=== PATIENT | male | born 1965 | race Caucasian/White ===

== ENCOUNTER → 2016-12-07 | Outpatient (CLI) | payer OTHER, MEDICARE ==
--- NOTE | 2016-12-07 12:18 | XCELERA REPORT ---
[address] [address] Lower Extremity Arterial Evaluation Name: ROB CALABRESE Age: 50 yrs Gender: Male : 1965 Patient Status: Outpatient Patient Location: Study Date: 12/07/2016 10:56 AM Procedure: A color flow and duplex scan of the lower extremity arteries was performed on the left with velocity and waveform anaylsis. Reason For Study: PVD, CLAUDICATION Ordering Physician: ARSEN CHANG Performed By: Eloise Rodriguez Measurements and Calculations Right Left POWER DISTRIBUTION ENGINEER PSV 149.3 cm/sec Prox PFA PSV 81.0 cm/sec Prox SFA PSV 106.9 cm/sec Mid SFA PSV -96.8 cm/sec Dist SFA PSV -66.4 cm/sec Prox Pop A PSV 79.1 cm/sec Dist TEZ PSV 86.6 cm/sec Dist PIGS FEET CLEANER PSV 83.0 cm/sec Rigo Pedis PSV 26.7 46.8 cm/sec Right Side Arterial Evaluation Very limited spot check of Dorsalis Pedis shows normal waveform. Left Side Arterial Evaluation Normal velocity, waveform and triphasic flow are present, from the Common Femoral artery down to the infrageniculate vessels. The ankle-brachial index was not done, the patient could not tolerate the pressure. 0% stenosis is noted. Interpretation Summary No hemodynamically significant lesions in the left lower extremity only, on duplex imaging, at rest. : ARSEN CHANG [place]
== END ==
LOC: SP 10:53
PROVIDERS: ATTEND Internal Medicine
DX: I73.9 Peripheral vascular disease, unspecified (principal)
CPT/HCPCS: 93926

== ENCOUNTER 2017-01-01 16:17 | Emergency (ER) | payer OTHER, MEDICARE ==
--- NOTE | 2017-01-01 16:42 | ER Document Report ---
ED Medical Screen (RME) - General Stated Complaint: BACK PAIN, HIP PAIN Mode of Arrival: Wheelchair Information source: Patient Notes: Patient reports recent cortisone injection shot on Monday of this week. Patient reports increased pain to low back that radiates to right hip area and groin. No fever. Patient does report pain to right lower pelvic area hx: Diabetes, hypertension I have greeted and performed a rapid initial assessment of this patient. A comprehensive ED assessment and evaluation of the patient, analysis of test results and completion of the medical decision making process will be conducted by additional ED providers. TRAVEL OUTSIDE OF THE [place] IN LAST 30 DAYS: No - Related Data Allergies/Adverse Reactions: No Known Allergies Allergy (Verified 01/01/17 16:39) Past Medical History - Past Medical History Cardiac Medical History: Reports: Hx Hypertension Endocrine Medical History: Reports: Hx Diabetes Mellitus Type 2 GI Medical History: Reports: Hx Gastroesophageal Reflux Disease Past Surgical History: Reports: Hx Appendectomy, Hx Orthopedic Surgery - cervical, lumbar sx Physical Exam - Vital signs Vitals: Temp Pulse Resp BP Pulse Ox 98.5 F 73 16 138/60 H 96 01/01/17 16:22 01/01/17 16:22 01/01/17 16:22 01/01/17 16:22 01/01/17 16:22 - Abdominal Tenderness: Tender - Right lower pelvic Course - Vital Signs Vital signs: Temp Pulse Resp BP Pulse Ox 98.5 F 73 16 138/60 H 96 01/01/17 16:22 01/01/17 16:22 01/01/17 16:22 01/01/17 16:22 01/01/17 16:22
[2017-01-01 18:09] LABS: APPEARANCE,URINE CLEAR; BILIRUBIN,URINE NEGATIVE (NEGATIVE); GLUCOSE, URINE NEGATIVE (NEGATIVE); KETONES,URINE NEGATIVE (NEGATIVE); LEUKOCYTE ESTERASE,URINE NEGATIVE (NEGATIVE); NITRITE,URINE NEGATIVE (NEGATIVE); PROTEIN,URINE NEGATIVE (NEGATIVE); URINE SPECIFIC GRAVITY 1.011; UROBILINOGEN,URINE NEGATIVE mg/dL (<2.0)
[2017-01-01 18:19] LABS: ABSOLUTE EOSINOPHILS # (AUTO) 0.1 10^3/uL (0.0-0.6); ABSOLUTE LYMPHOCYTES (AUTO) 2.8 10^3/uL (0.5-4.7); ABSOLUTE MONOCYTES (AUTO) 0.9 10^3/uL (0.1-1.4); ABSOLUTE NEUT (AUTO) 9.4 10^3/uL (1.7-8.2); BASOPHILS % (AUTO) 0.4 % (0-2); EOSINOPHILS % (AUTO) 1.1 % (0-6); HEMATOCRIT 46.6 % (37.9-51.0); HEMOGLOBIN 15.2 g/dL (13.5-17.0); LYMPHOCYTES % (AUTO) 20.9 % (13-45); MEAN CORPUSCULAR HEMOGLOBIN 27.2 pg (27.0-33.4); MEAN CORPUSCULAR HGB CONC 32.7 g/dL (32.0-36.0); MEAN CORPUSCULAR VOLUME 83 fl (80-97); MONOCYTES % (AUTO) 6.6 % (3-13); RED BLOOD COUNT 5.59 10^6/uL (4.35-5.55); RED CELL DISTRIBUTION WIDTH 13.7 % (11.5-14.0); WHITE BLOOD COUNT 13.2 10^3/uL (4.0-10.5)
[2017-01-01 18:20] LABS: ALANINE AMINOTRANSFERASE 53 U/L (21-72); ALBUMIN 4.4 g/dL (3.5-5.0); ALKALINE PHOSPHATASE 85 U/L (38-126); ANION GAP 13 (5-19); ASPARTATE AMINO TRANSFERASE 39 U/L (17-59); BILIRUBIN,TOTAL 0.7 mg/dL (0.2-1.3); BLOOD UREA NITROGEN 16 mg/dL (7-20); CALCIUM 10.3 mg/dL (8.4-10.2); CARBON DIOXIDE 29 mmol/L (22-30); CHLORIDE 99 mmol/L (98-107); CREATININE RESULT 0.94 mg/dL (0.52-1.25); GLUCOSE 129 mg/dL (75-110); POTASSIUM 4.4 mmol/L (3.6-5.0); SODIUM 140.5 mmol/L (137-145)
--- NOTE | 2017-01-01 22:33 | ER Document Report ---
HPI - HPI Pain Level: 4 Context: Patient is a 51-year-old male presents emergency Department complaining of right lower quadrant pain; onset this morning. Patient and his state that he has been burping a lot today but otherwise denies any difficulty tolerating a diet. Patient states the last bowel movement was this morning and was soft. Patient states that he is on narcotic pain medications for pain management for chronic back pain. States he is not on a stool softener. Patient admits that he has had his appendix surgically removed and no history of kidney stones. Denies any pain radiating into his groin, pyuria, hematuria, diarrhea, nausea or vomiting. He states at this time that he feels like he really just has deferred. As medical history significant for hypertension, hyperlipidemia, diabetes, chronic back pain - CARDIOVASCULAR Cardiovascular: DENIES: Chest pain - DERM Skin Color: Normal Past Medical History - General Information source: Patient - Social History Smoking Status: Unknown if Ever Smoked Chew tobacco use (# tins/day): No Frequency of alcohol use: None Drug Abuse: None Family History: Reviewed & Not Pertinent Patient has suicidal ideation: No Patient has homicidal ideation: No - Past Medical History Cardiac Medical History: Reports: Hx Hypertension Endocrine Medical History: Reports: Hx Diabetes Mellitus Type 2 Renal/ Medical History: Denies: Hx Peritoneal Dialysis GI Medical History: Reports: Hx Gastroesophageal Reflux Disease Past Surgical History: Reports: Hx Appendectomy, Hx Orthopedic Surgery - cervical, lumbar sx Vertical Provider Document - CONSTITUTIONAL Agree With Documented VS: Yes Exam Limitations: No Limitations General Appearance: WD/WN, No Apparent Distress, Obese - INFECTION CONTROL TRAVEL OUTSIDE OF THE [place] IN LAST 30 DAYS: No - HEENT HEENT: Atraumatic, Normal ENT Exam, Normocephalic - RESPIRATORY Respiratory: Breath Sounds Normal, No Respiratory Distress, Chest Non-Tender. negative: Rales, Rhonchi, Wheezing O2 Sat by Pulse Oximetry: 96 - CARDIOVASCULAR Cardiovascular: Regular Rate, Regular Rhythm, No Murmur Pulses: Normal: Radial - GI/ABDOMEN Gastrointestinal: Abdomen Soft, Abdomen Non-Tender, No Organomegaly, Normal Bowel Sounds. negative: Abdominal Guarding, Abdominal Rebound - MUSCULOSKELETAL/EXTREMETIES Musculoskeletal/Extremeties: MAEW, FROM, Non-Tender, No Edema - NEURO Level of Consciousness: Awake, Alert, Appropriate Motor/Sensory: No Motor Deficit, No Sensory Deficit Course - Re-evaluation Re-evalutation: 01/01/17 22:51 Patient is a 51-year-old male who presents emergency Department complaining of right lower quadrant abdominal pain. He denies any history of diverticulitis, irritable bowel syndrome, Crohn's disease or also to colitis. Patient was sent for CT the abdomen and pelvis after discussion with Dr. Rodríguez given that he had an elevated white count and right lower quadrant pain. CT scan of the abdomen did not reveal any acute processes. At this time and upon reassessment patient is pain-free and would like to go home. Otherwise his exam and workup is Indicative of any acute abdominal process. Stable for discharge and can follow- up with his PCP as scheduled - Vital Signs Vital signs: Temp Pulse Resp BP Pulse Ox 98.5 F 73 16 138/60 H 96 01/01/17 16:22 01/01/17 16:22 01/01/17 16:22 01/01/17 16:22 01/01/17 16:22 - Laboratory Result Diagrams: 01/01/17 17:45 01/01/17 17:45 Laboratory results interpreted by me: 01/01/17 01/01/17 17:45 17:45 WBC 13.2 H RBC 5.59 H Absolute Neutrophils 9.4 H Glucose 129 H Calcium 10.3 H - Diagnostic Test Radiology reviewed: Image reviewed, Reports reviewed Discharge - Discharge Clinical Impression: Abdominal pain Qualifiers: Abdominal location: right lower quadrant Qualified Code(s): R10.31 - Right lower quadrant pain Condition: Good Disposition: HOME, SELF-CARE Additional Instructions: ABDOMINAL PAIN: There are many causes of abdominal pain. Pain can mean a serious problem requiring surgery (such as appendicitis). It can also be an innocent problem that goes away on its own (such as a viral infection). Often, time must pass to determine the cause of pain. The physician does not feel that hospitalization is necessary, at present. Things may change within the next 24 hours. Call the doctor or come back for re- examination if any problems occur, such as: (1) Pain that becomes more severe, steady, or becomes concentrated in one specific area. Also, pain that is more severe with movement or coughing. (2) Vomiting that persists or becomes more frequent. (3) Blood in the vomitus, urine, or bowel movements. Blood in the stool may have a tarry or black appearance. (4) Shaking chills or fever greater than 100 degrees F. (5) The abdomen becomes more distended or swollen. (6) Bowel movements cease. (7) Failure to improve as expected. NORMAL EXAM AND WORKUP: At this time, your examination and workup show no significant abnormality. No significant abnormal physical findings are noted. All laboratory, EKG, and imaging (x-ray, CT scans, ultrasound) studies that were ordered show no significant abnormality. Although your examination and all studies that were ordered showed no significant abnormal finding, there are no examinations and no studies that are 100% accurate. There is always the possibility that some abnormality could exist and not be detected with physical examination or within the limits and capabilities of laboratory and other studies. You should return or follow up as you were instructed on your visit today for further evaluation if your symptoms do not resolve. ANTINAUSEA MEDICATION: You have been given a medication to suppress nausea and vomiting. This type of medication can be given as a shot, pill, or suppository. It will usually last for many hours. Pills and shots usually last six to eight hours, suppositories last about 12 hours. For the typical illness, only one or two doses of the medication may be necessary. Mild lightheadedness may occur. This type of medicine can cause drowsiness. Do not drive or operate dangerous machinery while under its influence. Do not mix with alcohol. See your doctor at once if you have muscle spasms or tightness, or uncontrollable motions (particularly of the neck, mouth, or jaw). Persistent vomiting or severe lightheadedness should also be evaluated by the physician. FOLLOW-UP CARE: If you have been referred to a physician for follow-up care, call the physician s office for an appointment as you were instructed or within the next two days. If you experience worsening or a significant change in your symptoms, notify the physician immediately or return to the Emergency Department at any time for re-evaluation. Prescriptions: Sucralfate [Carafate 1 gm Tablet] 1 gm PO ACHS 21 Days Forms: Elevated Blood Pressure Referrals: GABE MARS MD [Primary Care Provider] - Follow up as needed
[2017-01-01 22:39] VITALS: BP 147/84
== END 2017-01-01 22:42 | disposition home or self-care (01) ==
LOC: ER 16:17
DX: R10.31 Right lower quadrant pain (principal)
CPT/HCPCS: 36415; 74176; 80053; 81001; 85025; 99284

== ENCOUNTER → 2019-04-11 | Outpatient (CLI) | payer OTHER, MEDICARE ==
--- NOTE | 2019-04-11 11:54 | RADIOLOGY REPORT (SQ) ---
EXAM DESCRIPTION: HIP RIGHT AP/LATERAL COMPLETED DATE/TIME: 04/11/2019 11:36 am REASON FOR STUDY: PAIN IN RIGHT HIP M25.551 PAIN IN RIGHT HIP COMPARISON: 01/01/2017 CT ABDOMEN PELVIS NUMBER OF VIEWS: Two views. TECHNIQUE: AP pelvis and additional frog-leg view of the right hip. LIMITATIONS: None. FINDINGS: MINERALIZATION: Normal. RIGHT HIP: No fracture or dislocation. No worrisome bone lesions. Mild joint space narrowing and flo ny spurring LEFT HIP: No fracture or dislocation. No worrisome bone lesions. Mild joint space narrowing and bon y spurring PUBIS AND ISCHIUM: No fracture. PELVIS: No fracture. SACRUM: No fracture or dislocation. No worrisome bone lesions. Bilateral SI joint sclerosis LOWER LUMBAR SPINE: No fracture or dislocation. No worrisome bone lesions. No significant disc disea se. SOFT TISSUES: No findings. OTHER: No other significant finding. IMPRESSION: No acute fracture or malalignment. Mild bilateral hip joint space narrowing and bony spurring Bilateral SI joint sclerosis TECHNICAL DOCUMENTATION: JOB ID: [id number]- All Rights Reserved Reading location - IP/workstation name: [email or web address]
== END ==
LOC: OD 11:14
PROVIDERS: ATTEND Internal Medicine
DX: M25.551 Pain in right hip (principal)

== ENCOUNTER 2019-04-13 14:35 | Emergency (ER) | payer OTHER, MEDICARE ==
[2019-04-13] MEDS ORDERED: MORPHINE SULFATE 10 MG/ML INJ IV ONE (14:52)
[2019-04-13] MEDS ORDERED: ONDANSETRON HCL INJ/PF 4 MG/2 ML SDV IV ONE (14:52)
--- NOTE | 2019-04-13 14:54 | ER Document Report ---
ED Medical Screen (RME) - General Chief Complaint: Flank Pain Stated Complaint: FLANK PAIN Time Seen by Provider: 04/13/19 14:47 Primary Care Provider: GABE MARS MD [Primary Care Provider] - Follow up as needed Mode of Arrival: Ambulatory Information source: Patient Notes: Patient presents complaining of left flank pain for the past 3 days. Patient states the pain is been constant but the intensity varies. Patient has had some nausea and diarrhea as well. Patient denies any urinary symptoms. No fever, no blood in the stool. Patient states pain does occasionally radiate to left groin area. hx: Hypertension, chronic back pain, diabetes, GERD I have greeted and performed a rapid initial assessment of this patient. A comprehensive ED assessment and evaluation of the patient, analysis of test results and completion of the medical decision making process will be conducted by additional ED providers. TRAVEL OUTSIDE OF THE [place] IN LAST 30 DAYS: No - Related Data Allergies/Adverse Reactions: No Known Allergies Allergy (Verified 01/01/17 16:39) Past Medical History - Social History Frequency of alcohol use: None Drug Abuse: None - Past Medical History Cardiac Medical History: Reports: Hx Hypertension Endocrine Medical History: Reports: Hx Diabetes Mellitus Type 2 Renal/ Medical History: Denies: Hx Peritoneal Dialysis GI Medical History: Reports: Hx Gastroesophageal Reflux Disease Past Surgical History: Reports: Hx Appendectomy, Hx Orthopedic Surgery - cervical, lumbar sx Physical Exam - Vital signs Vitals: Temp Pulse Resp BP Pulse Ox 97.9 F 96 16 173/87 H 97 04/13/19 14:41 04/13/19 14:41 04/13/19 14:41 04/13/19 14:41 04/13/19 14:41 - Back Back: Tender - Left lower lumbar paraspinal tenderness Course - Vital Signs Vital signs: Temp Pulse Resp BP Pulse Ox 97.9 F 96 16 173/87 H 97 04/13/19 14:41 04/13/19 14:41 04/13/19 14:41 04/13/19 14:41 04/13/19 14:41 Doctor's Discharge - Discharge Referrals: GABE MARS MD [Primary Care Provider] - Follow up as needed
--- NOTE | 2019-04-13 15:15 | RADIOLOGY REPORT (SQ) ---
EXAM DESCRIPTION: CT ABD/PELVIS NO ORAL OR IV COMPLETED DATE/TIME: 04/13/2019 3:05 pm REASON FOR STUDY: L flank, L groin pain COMPARISON: 01/01/2017 and earlier TECHNIQUE: CT scan of the abdomen and pelvis performed without intravenous or oral contrast. Images reviewed with lung, soft tissue, and bone windows. Reconstructed coronal and sagittal MPR images revi ewed. All images stored on PACS. All CT scanners at this facility use dose modulation, iterative reconstruction, and/or weight based d osing when appropriate to reduce radiation dose to as low as reasonably achievable (ALARA). [facility]: Dose Right [facility]: CareDose [facility]: Dose Right [facility]: Teradose 4D [facility]: [employer] RADIATION DOSE: CT Rad equipment meets quality standard of care and radiation dose reduction techniq ues were employed. CTDIvol: 19.0 mGy. DLP: 1091 mGy-cm.mGy. LIMITATIONS: None. FINDINGS: LOWER CHEST: No significant findings. No nodules or infiltrates. NON-CONTRASTED LIVER, SPLEEN, ADRENALS: Evaluation limited by lack of IV contrast. No identified sign ificant masses. PANCREAS: No masses. No peripancreatic inflammatory changes. GALLBLADDER: No identified stones by CT criteria. No inflammatory changes to suggest cholecystitis. RIGHT KIDNEY AND URETER: No suspicious masses. Assessment limited by lack of IV contrast. No signif icant calcifications. No hydronephrosis or hydroureter. LEFT KIDNEY AND URETER: No suspicious masses. Assessment limited by lack of IV contrast. No signifi cant calcifications. No hydronephrosis or hydroureter. AORTA AND RETROPERITONEUM: No aneurysm. Mild scattered calcified plaque. No retroperitoneal masses or adenopathy. BOWEL AND PERITONEAL CAVITY: No dilated loops of bowel. No intraperitoneal free fluid or free air. No peritoneal mass. APPENDIX: Surgically absent. PELVIS, BLADDER, AND ABDOMINAL WALL:No abnormal masses. No free fluid. Urinary bladder is collapsed. BONES: Degenerative changes of the visualized thoracic and lumbar spine. No sinister bone lesion. OTHER: No other significant finding. IMPRESSION: NO SIGNIFICANT OR ACUTE PROCESS IN THE ABDOMEN OR PELVIS. COMMENT: Quality ID # [id number]: Final reports with documentation of one or more dose reduction techniques (e.g., Automated exposure control, adjustment of the mA and/or kV according to patient size, use of iterative reconstruction technique) TECHNICAL DOCUMENTATION: JOB ID: [id number] [employer]- All Rights Reserved Reading location - IP/workstation name: [email or web address]
[2019-04-13 16:12] LABS: ABSOLUTE BASOPHILS # (AUTO) 0.1 10^3/uL (0.0-0.2); ABSOLUTE EOSINOPHILS # (AUTO) 0.1 10^3/uL (0.0-0.6); ABSOLUTE LYMPHOCYTES (AUTO) 2.9 10^3/uL (0.5-4.7); ABSOLUTE MONOCYTES (AUTO) 0.8 10^3/uL (0.1-1.4); ABSOLUTE NEUT (AUTO) 10.3 10^3/uL (1.7-8.2); BASOPHILS % (AUTO) 0.7 % (0-2); EOSINOPHILS % (AUTO) 0.7 % (0-6); HEMATOCRIT 48.5 % (37.9-51.0); HEMOGLOBIN 16.4 g/dL (13.5-17.0); LYMPHOCYTES % (AUTO) 20.5 % (13-45); MEAN CORPUSCULAR HEMOGLOBIN 27.7 pg (27.0-33.4); MEAN CORPUSCULAR HGB CONC 33.8 g/dL (32.0-36.0); MEAN CORPUSCULAR VOLUME 82 fl (80-97); MONOCYTES % (AUTO) 5.8 % (3-13); PLATELET COUNT 377 10^3/uL (150-450); RED BLOOD COUNT 5.93 10^6/uL (4.35-5.55); RED CELL DISTRIBUTION WIDTH 13.8 % (11.5-14.0); SEGMENTED NEUTROPHILS % (AUTO) 72.3 % (42-78); TOTAL CELLS COUNTED % (AUTO) 100 %; WHITE BLOOD COUNT 14.2 10^3/uL (4.0-10.5)
[2019-04-13 16:24] LABS: ALANINE AMINOTRANSFERASE 54 U/L (21-72); ALKALINE PHOSPHATASE 85 U/L (38-126); ANION GAP 15 (5-19); ASPARTATE AMINO TRANSFERASE 65 U/L (17-59); BILIRUBIN,DIRECT 0.4 mg/dL (0.0-0.4); BILIRUBIN,TOTAL 0.7 mg/dL (0.2-1.3); BLOOD UREA NITROGEN 14 mg/dL (7-20); CALCIUM 10.7 mg/dL (8.4-10.2); CARBON DIOXIDE 27 mmol/L (22-30); CHLORIDE 99 mmol/L (98-107); GLUCOSE 148 mg/dL (75-110); POTASSIUM 4.1 mmol/L (3.6-5.0); SODIUM 141.4 mmol/L (137-145); TOTAL PROTEIN 8.1 g/dL (6.3-8.2)
[2019-04-13 17:41] LABS: APPEARANCE,URINE SLIGHTLY-CLOUDY; BILIRUBIN,URINE NEGATIVE (NEGATIVE); COLOR,URINE YELLOW; GLUCOSE, URINE NEGATIVE (NEGATIVE); KETONES,URINE 20 mg/dL (NEGATIVE); LEUKOCYTE ESTERASE,URINE NEGATIVE (NEGATIVE); NITRITE,URINE NEGATIVE (NEGATIVE); PROTEIN,URINE 30 mg/dL (NEGATIVE); URINE SPECIFIC GRAVITY 1.018; UROBILINOGEN,URINE NEGATIVE mg/dL (<2.0)
--- NOTE | 2019-04-13 17:51 | ER Document Report ---
ED GI/ - General Chief Complaint: Flank Pain Stated Complaint: FLANK PAIN Time Seen by Provider: 04/13/19 14:47 Primary Care Provider: GABE MARS MD [Primary Care Provider] - Follow up as needed Mode of Arrival: Ambulatory TRAVEL OUTSIDE OF THE [place] IN LAST 30 DAYS: No - HPI Notes: 04/13/19 17:46 Patient is a 53-year-old male presents to the emergency department with a chief complaint of left lower back pain that radiates into the lower abdomen. Patient states that the pain has been present for about one week. Patient states that earlier this week he did have diarrhea for 2 days. His also had similar symptoms in regards to the diarrhea but did not last as long. Patient states that after 2 days the diarrhea subsided. Patient states he has had a colonoscopy 5 years ago in which she was told he had polyps and diverticulosis. Patient states that the left lower back pain that radiates into the left lower abdomen has continued throughout the week. Patient reports decrease in appetite due to discomfort as well as nausea. Denies vomiting. Denies fever or chills. Patient states that standing makes the pain worse. Patient states that the pain in the left lower back and abdomen improve when he is better on his side or laying flat on his back. He does state he has had an appendectomy and multiple back surgeries. Patient is on 7.5 [place] for his chronic back pain. Denies recent injury or fall. Denies testicular pain or swelling. Patient denies any new numbness or tingling to lower extremities. Denies numbness to rectal area. Denies recent fall or injury. - Related Data Allergies/Adverse Reactions: No Known Allergies Allergy (Verified 01/01/17 16:39) Past Medical History - General Information source: Patient - Social History Smoking Status: Former Smoker Frequency of alcohol use: None Drug Abuse: None Family History: Reviewed & Not Pertinent Patient has suicidal ideation: No Patient has homicidal ideation: No - Past Medical History Cardiac Medical History: Reports: Hx Hypertension Pulmonary Medical History: Reports: None EENT Medical History: Reports: None Neurological Medical History: Reports: None Endocrine Medical History: Reports: Hx Diabetes Mellitus Type 2 Renal/ Medical History: Reports: None. Denies: Hx Peritoneal Dialysis Malignancy Medical History: Reports None GI Medical History: Reports: Hx Gastroesophageal Reflux Disease Musculoskeletal Medical History: Reports None Skin Medical History: Reports None Psychiatric Medical History: Reports: None Traumatic Medical History: Reports: None Infectious Medical History: Reports: None Past Surgical History: Reports: Hx Appendectomy, Hx Orthopedic Surgery - cervical, lumbar sx Review of Systems - Review of Systems Constitutional: See HPI EENT: No symptoms reported Cardiovascular: No symptoms reported Respiratory: No symptoms reported Gastrointestinal: See HPI Genitourinary: No symptoms reported Male Genitourinary: No symptoms reported Musculoskeletal: No symptoms reported Skin: No symptoms reported Hematologic/Lymphatic: No symptoms reported Neurological/Psychological: No symptoms reported Physical Exam - Vital signs Vitals: Temp Pulse Resp BP Pulse Ox 97.9 F 96 16 173/87 H 97 04/13/19 14:41 04/13/19 14:41 04/13/19 14:41 04/13/19 14:41 04/13/19 14:41 Interpretation: Hypertensive - Notes Notes: GENERAL: Well-appearing, well-nourished and in no acute distress. HEAD: Atraumatic, normocephalic. EYES: Pupils equal round and reactive to light, extraocular movements intact, sclera anicteric, conjunctiva are normal. ENT: Moist mucous membranes. NECK: Normal range of motion, supple without lymphadenopathy or JVD. LUNGS: Breath sounds clear to auscultation bilaterally and equal. No wheezes rales or rhonchi. HEART: Regular rate and rhythm without murmurs, rubs or gallops. ABDOMEN: Round, obese, soft, hyperactive bowel sounds and significant left lower quadrant tenderness with palpation. No guarding. No masses appreciated. BACK: No cervical, thoracic, lumbar midline tenderness. No saddle anesthesia, normal distal neurovascular exam. Mild left paraspinal tenderness to palpation. GENITOURINARY: Deferred. EXTREMITIES: Normal range of motion, no pitting or edema. No clubbing or cyanosis. NEUROLOGICAL: Cranial nerves II through XII grossly intact. Normal speech, normal gait. PSYCH: Normal mood, normal affect. SKIN: Warm, Dry, normal turgor, no rashes or lesions noted. Course - Re-evaluation Re-evalutation: 04/13/19 Upon initial evaluation patient is resting on stretcher in position of comfort on his left side. Patient appears non-toxic and is in no acute distress. His lab work did show a slight leukocytosis as well as ketones in his urine. Patient was extremely tender in his left lower quadrant. Unfortunately, a CT was performed without IV or oral contrast to appropriately identify certain disease processes. Discussed case with Dr. Coreas and his physical presentation. Due to patient's significant tenderness in his LLQ and history of diverticulosis, diverticulitis could be a reasonable possibility. Will treat with Augmentin versus Cipro/Flagyl due to patient history of diabetes and currently taking sulfonylureas as this could cause hypoglycemia. Discussed treatment plan with patient. Informed patient that a CT with oral and IV contrast would be ideal so if he is not feeling better after 48 hours on antibiotics to return for re-evaluation. Patient also has scheduled colonoscopy with Dr. Allen in the next few weeks, informed patient to call his PCP as well as GI on Monday for follow up. Patient placed on strict return precautions to include fever, severe abdominal pain, vomiting, inability to tolerate fluids. Patient placed on clear liquids for next 48-72 hours. Provided patient with e ducation sheet regarding clear liquid diet. Will give pain medications and antibiotics prior to discharge. - Vital Signs Vital signs: Temp Pulse Resp BP Pulse Ox 98.4 F 76 16 138/72 H 96 04/13/19 20:01 04/13/19 20:01 04/13/19 20:01 04/13/19 20:01 04/13/19 20:01 - Laboratory Result Diagrams: 04/13/19 15:50 04/13/19 15:50 Laboratory results interpreted by me: 04/13/19 04/13/19 04/13/19 15:50 15:50 17:00 WBC 14.2 H RBC 5.93 H Absolute Neutrophils 10.3 H Glucose 148 H Calcium 10.7 H AST 65 H Urine Protein 30 H Urine Ketones 20 H Urine Ascorbic Acid 40 H - Diagnostic Test Radiology reviewed: Reports reviewed Discharge - Discharge Clinical Impression: Decrease in appetite, Nausea Abdominal pain Qualifiers: Abdominal location: left lower quadrant Qualified Code(s): R10.32 - Left lower quadrant pain Lower back pain Qualifiers: Chronicity: acute Back pain laterality: left Sciatica presence: without sciatica Qualified Code(s): M54.5 - Low back pain Condition: Stable Disposition: HOME, SELF-CARE Instructions: Abdominal Pain ([facility]), Antinausea Medication ([facility]), Oral Narcotic Medication ([facility]), Toradol Injection ([facility]) Additional Instructions: Today you were seen in the emergency department for left lower back pain and lower abdominal pain. We did perform CT of your abdomen without oral or IV contrast. This did not show any acute abnormality of the abdomen or pelvis. Due to your symptoms and significant left lower quadrant pain you are being treated for diverticulitis. Diverticulitis was not shown on your CT scan but this is best visualized with oral and IV contrast. The treatment for this includes Augmentin which is an antibiotic that you will be prescribed for 7 days and a clear liquid diet the next 48 to 72 hours. Please see your primary care physician or return to the emergency department for a close follow-up. Keep your appointment to have your colonoscopy performed but please alert Dr. Allen of your symptoms on Monday. Please return over the next few days if you are unable to tolerate your antibiotic, develop a fever, your pain is uncontrolled in your lower back as well as your abdomen, inability to tolerate liquids, or any other concerning or new symptoms please return to the emergency department immediately. Abdominal Pain There are many causes of abdominal pain. Pain can mean a serious problem requiring surgery. It can also be an innocent problem that goes away on its own (such as a viral infection). Often, time must pass to determine the cause of pain. The physician does not feel that hospitalization is necessary, at present. Things may change within the next 24 hours. Call the doctor or come back for re- examination if any problems occur, such as: (1) Pain that becomes more severe, steady, or becomes concentrated in one specific area. Also, pain that is more severe with movement or coughing. (2) Vomiting that persists or becomes more frequent. (3) Blood in the vomitus, urine, or bowel movements. Blood in the stool may have a tarry or black appearance. (4) Shaking chills or fever greater than 100 degrees F. (5) The abdomen becomes more distended or swollen. (6) Bowel movements cease. (7) Failure to improve as expected. Prescriptions: Amox Tr/Potassium Clavulanate [Augmentin 875-125 Tablet] 1 tab PO BID 7 Days #14 tablet Oxycodone HCl/Acetaminophen [Percocet 5-325 mg Tablet] 1 tab PO Q4H PRN #15 tablet PRN Reason: Referrals: GABE MARS MD [Primary Care Provider] - Follow up as needed
[2019-04-13] MEDS ORDERED: AMOXICILLIN TR/POT CLAVULANATE 500-125 MG TAB PO ONE (18:39)
[2019-04-13] MEDS ORDERED: KETOROLAC TROMETHAMINE INJ/PF 30 MG/1 ML SDV IV ONE (18:39)
[2019-04-13] MEDS ORDERED: AMOXICILLIN TRIHYDRATE 500 MG CAPSULE PO ONE (18:39)
[2019-04-13] MEDS ORDERED: OXYCODONE HCL IR 5 MG TABLET PO ONE (18:40)
[2019-04-13] MEDS ORDERED: ONDANSETRON ODT 4 MG TAB (6 TAB/ER DISP) PO PRN (18:57)
[2019-04-13 20:02] VITALS: BP 138/72
== END 2019-04-13 20:01 | disposition home or self-care (01) ==
LOC: ER 14:35
DX: R11.0 Nausea (principal); R10.30 Lower abdominal pain, unspecified; R10.32 Left lower quadrant pain; M54.5 Low back pain; I10 Essential (primary) hypertension; E11.9 Type 2 diabetes mellitus without complications
CPT/HCPCS: 99284; 96374; 96375; 36415; 85025; 80053; 81001; 74176; J1885; J2270; J2405

== ENCOUNTER → 2020-04-21 | Outpatient (CLI) | payer OTHER, MEDICARE ==
--- NOTE | 2020-04-21 10:40 | RADIOLOGY REPORT (SQ) ---
EXAM DESCRIPTION: CT FACIAL AREA WITH IMAGES COMPLETED DATE/TIME: 04/21/2020 10:18 am REASON FOR STUDY: MALIGNANT OTITIS EXTERNA, RIGHT EAR H60.21 MALIGNANT OTITIS EXTERNA, RIGHT EAR COMPARISON: None. TECHNIQUE: Post contrast images through the facial bones and orbits windowed for bone and soft tissu e. Additional coronal and sagittal reconstructed images reviewed. All images stored on PACS. All CT scanners at this facility use dose modulation, iterative reconstruction, and/or weight based d osing when appropriate to reduce radiation dose to as low as reasonably achievable (ALARA). [facility]: Dose Right [facility]: CareDose [facility]: Dose Right [facility]: Teradose 4D [facility]: [employer] RENAL FUNCTION: GFR > 60. RADIATION DOSE: . LIMITATIONS: None. FINDINGS: FACIAL BONES: No fracture or bone lesion. ORBITS: Intact. No fracture. Symmetric intact globes and retroorbital soft tissues. PARANASAL SINUSES: Clear. SOFT TISSUES: No mass or edema. No abnormal enhancement. INFERIOR BRAIN: Limited view. No acute findings. OTHER: No other significant finding. IMPRESSION: No acute or significant findings. TECHNICAL DOCUMENTATION: JOB ID: [id number] Quality ID # [id number]: Final reports with documentation of one or more dose reduction techniques (e.g., Au tomated exposure control, adjustment of the mA and/or kV according to patient size, use of iterative reconstruction technique) 2010 [employer]- All Rights Reserved Reading location - IP/workstation name: [email or web address]
== END ==
LOC: RAD 09:51
PROVIDERS: ATTEND Internal Medicine
DX: H60.21 Malignant otitis externa, right ear (principal)
CPT/HCPCS: 70487; 82565

== ENCOUNTER → 2020-07-14 | Outpatient (CLI) | payer OTHER, MEDICARE ==
--- NOTE | 2020-07-14 12:04 | RADIOLOGY REPORT (SQ) ---
EXAM DESCRIPTION: CT ABD/PELVIS WITH IV ONLY IMAGES COMPLETED DATE/TIME: 07/14/2020 11:45 am REASON FOR STUDY: R10.31 RIGHT LOWER QUADRANT PAIN R10.31 RIGHT LOWER QUADRANT PAIN COMPARISON: 04/13/2019. TECHNIQUE: CT scan of the abdomen and pelvis performed using helical scanning technique with dynamic intravenous contrast injection. No oral contrast. Images reviewed with lung, soft tissue, and bone windows. Reconstructed coronal and sagittal MPR images reviewed. Delayed images for evaluation of the urinary system also acquired. All images stored on PACS. All CT scanners at this facility use dose modulation, iterative reconstruction, and/or weight based d osing when appropriate to reduce radiation dose to as low as reasonably achievable (ALARA). [facility]: Dose Right [facility]: CareDose [facility]: Dose Right [facility]: Teradose 4D [facility]: [employer] CONTRAST TYPE AND DOSE: contrast/concentration: Isovue 350.00 mmol/ml; Total Contrast Delivered: 100 .0 ml; Total Saline Delivered: 40.0 ml RENAL FUNCTION: Creatinine 0.9. RADIATION DOSE: CT Rad equipment meets quality standard of care and radiation dose reduction techniq ues were employed. CTDIvol: 31.1 - 31.7 mGy. DLP: 3541 mGy-cm.. LIMITATIONS: None. FINDINGS: LOWER CHEST: No significant findings. No nodules or infiltrates. LIVER: Normal size. Diffuse fatty infiltration. No masses. No dilated ducts. SPLEEN: Normal size. No focal lesions. PANCREAS: No masses. No significant calcifications. No adjacent inflammation or peripancreatic fluid collections. Pancreatic duct not dilated. GALLBLADDER: No identified stones by CT criteria. No inflammatory changes to suggest cholecystitis. ADRENAL GLANDS: No significant masses or asymmetry. RIGHT KIDNEY AND URETER: No solid masses. No significant calcifications. No hydronephrosis or hyd roureter. LEFT KIDNEY AND URETER: No solid masses. No significant calcifications. No hydronephrosis or hydr oureter. AORTA AND VESSELS: No aneurysm. No dissection. Renal arteries, SMA, celiac without stenosis. RETROPERITONEUM: No retroperitoneal adenopathy, hemorrhage or masses. BOWEL AND PERITONEAL CAVITY: No masses or inflammatory changes. No free fluid or peritoneal masses. APPENDIX: Surgically absent. PELVIS: No mass. No free fluid. Normal bladder. ABDOMINAL WALL: No masses. No hernias. BONES: No significant or acute findings. Degenerative changes in the spine. OTHER: No other significant finding. IMPRESSION: NO SIGNIFICANT OR ACUTE FINDING IN THE ABDOMEN OR PELVIS ON CT SCAN WITH IV CONTRAST. TECHNICAL DOCUMENTATION: JOB ID: [id number] Quality ID # [id number]: Final reports with documentation of one or more dose reduction techniques (e.g., Au tomated exposure control, adjustment of the mA and/or kV according to patient size, use of iterative reconstruction technique) 2010 [employer]- All Rights Reserved Reading location - IP/workstation name: [email or web address]
== END ==
LOC: RAD 11:13
PROVIDERS: ATTEND Internal Medicine
DX: R10.31 Right lower quadrant pain (principal)
CPT/HCPCS: 74177; 82565